=== PATIENT | male | born 1955 | race Caucasian/White ===

== ENCOUNTER 2021-04-09 12:35 | Emergency (ER) | payer OTHER, BC ==
[2021-04-09 12:44] VITALS: TEMP 97.8; BMI 29.7
[2021-04-09] MEDS ORDERED: LIDOCAINE 5% TOPICAL PATCH TP ONE (13:49)
[2021-04-09] MEDS ORDERED: KETOROLAC TROMETHAMINE 30 MG/1 ML VIAL IM ONE (13:50)
[2021-04-09 15:30] VITALS: BP 113/71; PULSE 73
[2021-04-09] MEDS ORDERED: LIDOCAINE PATCH REMOVAL MC SCH (22:00)
== END 2021-04-09 16:40 | disposition home or self-care (01) ==
LOC: FER 12:35
PROC: 3E0233Z Introduction of Anti-inflammatory into Muscle, Percutaneous Approach (ICD-10-PCS; principal; 2021-04-09)
DX: M54.5 Low back pain (principal); X50.0XXA Overexertion from strenuous movement or load, initial encounter
CPT/HCPCS: 99284-25

== ENCOUNTER 2023-03-14 08:23 | Day surgery (SDC) | payer OTHER, BC ==
[2023-03-14] MEDS ORDERED: CARBACHOL 0.01% INTRA-OCULAR 1.5 ML VIAL ONE (08:47)
[2023-03-14] MEDS ORDERED: NEO/POLYMYX B SULF/DEXAMETH OPHTHALMIC 5ML BOTTLE ONE (08:47)
[2023-03-14] MEDS ORDERED: BSS (NA/CA/MG/K) BALANCED SALT SOLUTION OPHTH SOLN 15 ML BOTTLE ONE (08:47)
[2023-03-14] MEDS: CIPROFLOXACIN 0.3% EYE DROPS 5 ML BOTTLE ONE ×3 (09:00→09:10)
[2023-03-14] MEDS: TROPICAMIDE 1% OPHTH SOLN 15 ML BOTTLE ONE ×3 (09:00→09:10)
[2023-03-14] MEDS: CYCLOPENTOLATE 2% OPHTH SOLN 2 ML BOTTLE ONE ×3 (09:00→09:10)
[2023-03-14] MEDS: PHENYLEPHRINE 2.5% OPTHALMIC DROP 2ML BOTTLE ONE ×3 (09:00→09:10)
[2023-03-14] MEDS ORDERED: MIDAZOLAM HCL 2 MG/2 ML SINGLE DOSE VIAL ONE (10:44)
[2023-03-14] MEDS ORDERED: KETOROLAC TROMETHAMINE 30 MG/1 ML VIAL ONE (10:57)
[2023-03-14 11:39] VITALS: RESP 16; TEMP 97.6
[2023-03-14 11:54] VITALS: BP 116/67; PULSE 70
== END 2023-03-14 12:00 | disposition home or self-care (01) ==
LOC: FASU 08:23
PROVIDERS: ATTEND Ophthalmology
PROC: 08DJ3ZZ Extraction of Right Lens, Percutaneous Approach (ICD-10-PCS; principal; 2023-03-14 10:58)
DX: H26.8 Other specified cataract (principal)

== ENCOUNTER 2023-04-11 07:56 | Day surgery (SDC) | payer OTHER, BC ==
[~2023-04-11 07:56] MED LIST: LACTATED RINGERS SOLUTION 1,000 ML IV SCH
[2023-04-11] MEDS: TROPICAMIDE 1% OPHTH SOLN 15 ML BOTTLE ONE ×3 (08:15→08:25)
[2023-04-11] MEDS: PHENYLEPHRINE 2.5% OPTHALMIC DROP 2ML BOTTLE ONE ×3 (08:15→08:25)
[2023-04-11] MEDS: CYCLOPENTOLATE 2% OPHTH SOLN 2 ML BOTTLE ONE ×3 (08:15→08:25)
[2023-04-11] MEDS: CIPROFLOXACIN HCL 0.3% OPHTH 2.5ML BOTTLE ONE ×3 (08:15→08:25)
[2023-04-11] MEDS ORDERED: LIDOCAINE 1% P/F 10 MG/ML VIAL ONE (08:56)
[2023-04-11] MEDS ORDERED: CARBACHOL 0.01% INTRA-OCULAR 1.5 ML VIAL ONE (08:56)
[2023-04-11] MEDS ORDERED: TETRACAINE 0.5% OPHTH SOLN 2 ML BOTTLE ONE (08:56)
[2023-04-11] MEDS ORDERED: NEO/POLYMYX B SULF/DEXAMETH OPHTHALMIC 5ML BOTTLE ONE (08:56)
[2023-04-11] MEDS ORDERED: BSS (NA/CA/MG/K) BALANCED SALT SOLUTION OPHTH SOLN 15 ML BOTTLE ONE (08:56)
[2023-04-11] MEDS ORDERED: MIDAZOLAM HCL 2 MG/2 ML SINGLE DOSE VIAL ONE (10:00)
[2023-04-11 10:36] VITALS: RESP 18; TEMP 97.2
[2023-04-11 10:52] VITALS: BP 110/80; PULSE 82
== END 2023-04-11 10:52 | disposition home or self-care (01) ==
LOC: FASU 07:56
PROVIDERS: ATTEND Ophthalmology
PROC: 08RK3JZ Replacement of Left Lens with Synthetic Substitute, Percutaneous Approach (ICD-10-PCS; principal; 2023-04-11 10:04)
DX: H26.8 Other specified cataract (principal)
CPT/HCPCS: 66984; V2632

== ENCOUNTER 2023-09-28 10:27 | Emergency (ER) | payer OTHER, BC ==
[2023-09-28 10:35] VITALS: BP 100/59; PULSE 73; RESP 18; TEMP 99.1; BMI 30.7
[2023-09-28] MEDS ORDERED: MAG HYDROX/AL HYDROX/SIMETH 30 ML UNIT-DOSE CUP ONE (11:35)
[2023-09-28] MEDS ORDERED: IBUPROFEN 600 MG TABLET (FP) PO ONE (11:35)
[2023-09-28] MEDS ORDERED: BENZOCAINE/MENTH/CETYLPYRD CL 1 EACH LOZENGE MM ONE (11:35)
[2023-09-28] MEDS: IBUPROFEN 600 MG TABLET (FP) PO ONE (11:41)
[2023-09-28] MEDS: MAG HYDROX/AL HYDROX/SIMETH 30 ML UNIT-DOSE CUP PO ONE (11:42)
[2023-09-28] MEDS: BENZOCAINE/MENTH/CETYLPYRD CL 1 EACH LOZENGE MM ONE (11:42)
== END 2023-09-28 14:43 | disposition home or self-care (01) ==
LOC: JER 10:27
DX: J02.9 Acute pharyngitis, unspecified (principal); R53.83 Other fatigue; R68.83 Chills (without fever); R09.81 Nasal congestion; R19.7 Diarrhea, unspecified; U07.1 COVID-19
CPT/HCPCS: 71046-TC-FY; 87651; 93005; 93010; 99285-25